=== PATIENT | male | born 1985 | race Asian ===

== ENCOUNTER 2022-11-28 11:04 | Emergency (ER) | payer OTHER ==
[~2022-11-28] VITALS: Ht 157.5 cm; Wt 59.0 kg
[2022-11-28 11:26] VITALS: BP 116/65; PULSE 72; RESP 20; TEMP 98.3; O2SAT 97
[2022-11-28 13:57] LABS: FLU A ANTIGEN negative (NEGATIVE); FLU B ANTIGEN NEGATIVE (NEGATIVE)
[2022-11-28] MEDS ORDERED: IBUP-2213 PO (14:05)
[2022-11-28] MEDS ORDERED: LIDO15SO4 PO (14:05)
[2022-11-28] MEDS ORDERED: PROM118S5 PO (14:05)
== END 2022-11-28 14:15 | disposition home or self-care (01) ==
LOC: MED 11:04
DX: J06.9 Acute upper respiratory infection, unspecified (principal); Z20.822 Contact with and (suspected) exposure to COVID-19; Z79.899 Other long term (current) drug therapy
CPT/HCPCS: 99283